=== PATIENT | female | born 1975 | race Caucasian/White ===

== ENCOUNTER 2016-11-25 09:10 | Emergency (ER) | payer OTHER ==
[~2016-11-25] VITALS: Ht 160 cm; Wt 90.7 kg
[2016-11-25] MEDS ORDERED: LEVO150T5 PO (09:31)
[2016-11-25] MEDS ORDERED: ALPR0.254 PO (09:31)
[2016-11-25] MEDS ORDERED: ONDANSETRON PF 4 MG/2 ML VIAL. IV ONE ×2 (10:15→11:15)
[2016-11-25] MEDS ORDERED: IV NORMAL SALINE 1000ML BAG 1,000 ML IV ONE (10:15)
[2016-11-25] MEDS ORDERED: FENTANYL PF 100 MCG/2 ML VIAL. IV ONE (10:15)
[2016-11-25 10:26] LABS: BILIRUBIN,URINE NEGATIVE (NEG); GLUCOSE,URINE NEGATIVE (NEG); NITRITE,URINE NEGATIVE (NEG); PH,URINE 5.5; PROTEIN,URINE NEGATIVE (NEG-TRACE); UROBILINOGEN,URINE 0.2 mg/dL (0.2 mg/dL)
[2016-11-25 10:26] LABS: BASO % 0 % (0-3); EOS % 1 % (0-3); HEMATOCRIT 36.7 % (36.0-47.0); HEMOGLOBIN 12.2 g/dL (12.0-15.5); LYMPH # 2.5 x10^3/uL (1.0-4.8); LYMPH % 30 % (24-48); MEAN CORPUSCULAR HEMOGLOBIN 28 pg (25-35); MEAN CORPUSCULAR HGB CONC 33 g/dL (31-37); MEAN CORPUSCULAR VOLUME 85 fL (79-100); MONO % 8 % (0-9); NEUT % 61 % (31-73); PLATELET COUNT 322 x10^3/uL (140-400); RED BLOOD COUNT 4.32 x10^6/uL (3.50-5.40); RED CELL DISTRIBUTION WIDTH 12.9 % (11.5-14.5); WHITE BLOOD COUNT 8.3 x10^3/uL (4.0-11.0)
--- NOTE | 2016-11-25 10:27 | PHYS DOC ---
Past Medical History Past Medical History: Hypertension, Hypothyroid, Other Additional Past Medical Histor: diaphragmatic hernia Past Surgical History: Other Additional Past Surgical Histo: diaphragmatic hernia repair, right ankle repair with hardware Alcohol Use: None Drug Use: None Adult General Chief Complaint Chief Complaint: GI PROBLEM HPI HPI 41-year-old female who's had significant epigastrium and left upper quadrant pain for the last several months that acutely worsened over the last day. Patient is in the process of being worked up by her primary care doctor and had an outpatient CT scan of her abdomen and pelvis scheduled for tomorrow but states her pain is too significant to make it to that appointment. She states she is nauseated but has not vomited. She states her stools are loose but this is normal for her. Stool was yesterday and was normal for her. She denies any blood in her stool She has history of cholecystectomy as well as history of a diaphragmatic hernia that has been repaired by Dr. Waller in the past. She has not yet had any endoscopy or colonoscopy. She states her last menstrual period was 15 November and she completed it without issue. She denies any vaginal bleeding or discharge. She denies any dysuria or hematuria. She denies any fever. Review of Systems Review of Systems Constitutional: Denies fever or chills [] Eyes: Denies change in visual acuity, redness, or eye pain [] HENT: Denies nasal congestion or sore throat [] Respiratory: Denies cough or shortness of breath [] Cardiovascular: No additional information not addressed in HPI [] GI: Has abdominal pain, has nausea, denies vomiting, denies bloody stools or diarrhea [] : Denies dysuria or hematuria [] Musculoskeletal: Denies back pain or joint pain [] Integument: Denies rash or skin lesions [] Neurologic: Denies headache, focal weakness or sensory changes [] Endocrine: Denies polyuria or polydipsia [] Current Medications Current Medications Current Medications Medications (Trade) Dose Ordered Sig/Kenna Start Time Stop Time Status Last Admin Dose Admin Fentanyl Citrate (Fentanyl 2ml Vial) 50 mcg 1X ONCE 11/25/16 10:15 11/25/16 10:16 DC 11/25/16 10:37 50 MCG Iohexol (Omnipaque 300 Mg/ml) 75 ml 1X ONCE 11/25/16 10:30 11/25/16 10:31 DC 11/25/16 10:59 75 ML Multi-Ingredient Mouthwash/Gargle (Gi Cocktail Single Dose) 15 ml 1X ONCE 11/25/16 11:45 11/25/16 11:46 DC 11/25/16 11:51 15 ML Ondansetron HCl (Zofran) 4 mg 1X ONCE 11/25/16 11:15 11/25/16 11:16 DC 11/25/16 11:19 4 MG Ondansetron HCl 4 mg 4 mg 1X ONCE 11/25/16 10:15 11/25/16 10:16 DC 11/25/16 10:34 4 MG Pantoprazole Sodium (Protonix Vial) 40 mg 1X ONCE 11/25/16 11:45 11/25/16 11:46 DC 11/25/16 11:51 40 MG Sodium Chloride (Iv Sodium Chloride 0.9% 1000ml Bag) 1,000 ml @ 1,000 mls/hr 1X ONCE 11/25/16 10:15 11/25/16 11:14 DC 11/25/16 10:32 1,000 MLS/HR Allergies Allergies Allergies Coded Allergies Type Severity Reaction Last Updated Verified ampicillin Allergy Intermediate hives 11/25/16 Yes Physical Exam Physical Exam Constitutional: Well developed, well nourished, no acute distress, non-toxic appearance. [] HENT: Normocephalic, atraumatic, bilateral external ears normal, oropharynx moist, no oral exudates, nose normal. [] Eyes: PERRLA, EOMI, conjunctiva normal, no discharge. [] Neck: Normal range of motion, no tenderness, supple, no stridor. [] Cardiovascular:Heart rate regular rhythm, no murmur [] Lungs & Thorax: Bilateral breath sounds clear to auscultation [] Abdomen: Bowel sounds normal, soft, moderate LUQ and epigastric tenderness, no masses, no pulsatile masses. [] Skin: Warm, dry, no erythema, no rash. [] Back: No tenderness, no CVA tenderness. [] Extremities: No tenderness, no cyanosis, no clubbing, ROM intact, no edema. [] Neurologic: Alert and oriented X 3, normal motor function, normal sensory function, no focal deficits noted. [] Psychologic: Affect normal, judgement normal, mood normal. [] Current Patient Data Vital Signs Vital Signs Date Time Temp Pulse Resp B/P Pulse Ox O2 Delivery O2 Flow Rate FiO2 11/25/16 12:00 72 20 134/90 100 11/25/16 09:22 98.6 Room Air 98.6 Lab Values Laboratory Tests Test 11/25/16 08:43 11/25/16 09:30 11/25/16 09:55 POC Urine HCG, Qualitative Hcg negative (Negative) Urine Collection Type Unknown Urine Color Yellow Urine Clarity Clear Urine pH 5.5 Urine Specific [place] >=1.030 Urine Protein Negativemg/dL (NEG-TRACE) Urine Glucose (UA) Negativemg/dL (NEG) Urine Ketones (Stick) Tracemg/dL (NEG) Urine Blood Moderate (NEG) Urine Nitrite Negative (NEG) Urine Bilirubin Negative (NEG) Urine Urobilinogen Dipstick 0.2mg/dL (0.2 mg/dL) Urine Leukocyte Esterase Trace (NEG) Urine RBC 0/HPF (0-2) Urine WBC 0/HPF (0-4) Urine Squamous Epithelial Cells Few/LPF Urine Bacteria 0/HPF (0-FEW) White Blood Count 8.3x10^3/uL (4.0-11.0) Red Blood Count 4.32x10^6/uL (3.50-5.40) Hemoglobin 12.2g/dL (12.0-15.5) Hematocrit 36.7% (36.0-47.0) Mean Corpuscular Volume 85fL (79-100) Mean Corpuscular Hemoglobin 28pg (25-35) Mean Corpuscular Hemoglobin Concent 33g/dL (31-37) Red Cell Distribution Width 12.9% (11.5-14.5) Platelet Count 322x10^3/uL (140-400) Neutrophils (%) (Auto) 61% (31-73) Lymphocytes (%) (Auto) 30% (24-48) Monocytes (%) (Auto) 8% (0-9) Eosinophils (%) (Auto) 1% (0-3) Basophils (%) (Auto) 0% (0-3) Neutrophils # (Auto) 5.0x10^3uL (1.8-7.7) Lymphocytes # (Auto) 2.5x10^3/uL (1.0-4.8) Monocytes # (Auto) 0.7x10^3/uL (0.0-1.1) Eosinophils # (Auto) 0.1x10^3/uL (0.0-0.7) Basophils # (Auto) 0.0x10^3/uL (0.0-0.2) Sodium Level 141mmol/L (136-145) Potassium Level 3.7mmol/L (3.5-5.1) Chloride Level 106mmol/L (98-107) Carbon Dioxide Level 25mmol/L (21-32) Anion Gap 10 (6-14) Blood Urea Nitrogen 16mg/dL (7-20) Creatinine 0.8mg/dL (0.6-1.0) Estimated GFR (Cockcroft-Gault) 79.9 BUN/Creatinine Ratio 20 (6-20) Glucose Level 95mg/dL (70-99) Calcium Level 9.0mg/dL (8.5-10.1) Total Bilirubin 0.4mg/dL (0.2-1.0) Aspartate Amino Transferase (AST) 16U/L (15-37) Alanine Aminotransferase (ALT) 20U/L (14-59) Alkaline Phosphatase 56U/L (46-116) Total Protein 7.3g/dL (6.4-8.2) Albumin 3.4g/dL (3.4-5.0) Albumin/Globulin Ratio 0.9 (1.0-1.7) L Lipase 87U/L (73-393) Laboratory Tests 11/25/16 09:55 Laboratory Tests 11/25/16 09:55 EKG EKG [] Radiology/Procedures Radiology/Procedures [] CT scan of the abdomen and pelvis with contrast 11/25/2016 Clinical history: Epigastric pain. Technique: After the intravenous administration of 75 cc of Omnipaque 300, contiguous, 5 mm axial sections were obtained through the abdomen and pelvis. One or more of the following individualized dose reduction techniques were utilized for this study: 1. Automated exposure control. 2. Adjustment of the mA and/or kV according to patient size. 3. Use of iterative reconstruction technique. Findings: Images through the lung bases demonstrate minimal dependent subsegmental atelectasis bilaterally. A 3 mm calcified granuloma is seen involving the right lower lobe. The liver, spleen, pancreas, right adrenal gland and left kidney are within normal limits. A 2.8 cm rounded low-attenuation lesion is seen involving the left adrenal gland consistent most likely with an adrenal adenoma. A 2 to 3 mm nonobstructing calculus is seen involving the superior pole of the right kidney. Surgical clips are seen involving the gallbladder fossa consistent with a cholecystectomy. There is a small sliding hiatal hernia. The abdominal aorta tapers normally. No free fluid or free air is seen within the abdomen. The appendix is well-visualized and is within normal limits. There is no evidence of bowel obstruction. Images through the pelvis demonstrate the urinary bladder distended with urine. No adnexal mass is seen. No free fluid is noted. Impression: No acute abnormality is seen. Course & Med Decision Making Course & Med Decision Making Pertinent Labs and Imaging studies reviewed. (See chart for details) Her laboratory workup was unremarkable. Her serum lipase is not elevated. CT with IV contrast did not reveal any acute abnormality. Patient feels slightly improved after Protonix and Zofran but states the GI cocktail upset her stomach and has made her more nauseated. I counseled her that she is likely in need of endoscopy. She will continue to follow with her primary care doctor for her symptoms with strict instruction to return if it should worsen in any way. I also counseled her to remain well-hydrated and eat a bland diet until she can receive follow-up. The CT of her abdomen and pelvis did demonstrate a sliding hiatal hernia which could be related to her symptoms and I do believe she is still a good candidate for endoscopy. A prescription for protonix and Zofran will be provided. She'll follow up the next day with her primary care doctor for continued pain control as well as endoscopy or any other procedures for her ongoing abdominal pain symptoms. Dragon Disclaimer Dragon Disclaimer This electronic medical record was generated, in whole or in part, using a voice recognition dictation system. Departure Departure Impression: Primary Impression: Abdominal pain Disposition: 01 HOME, SELF-CARE Admitting Physician: Other Condition: STABLE Referrals: JONN REED APRN (PCP) Patient Instructions: Abdominal Pain, [id number] Additional Instructions: Please take your protonix and zofran as prescribed. Follow up closely with your primary doctor in the next several days for your symptoms. Return to the ER if you develop any worsening of your symptoms. Continue to stay well hydrated and eat a bland diet. Scripts Pantoprazole Sodium (Protonix)40 Mg Tablet.dr40 Mg PO DAILY #1 TAB Prov:JOSHUA COWAN DO 11/25/16 Ondansetron Hcl (Zofran)4 Mg Tablet4 Mg PO BID PRN NAUSEA/VOMITING #10 TAB Prov:JOSHUA COWAN DO 11/25/16 JOSHUA COWAN DO Nov 25, 2016 10:27
[2016-11-25] MEDS ORDERED: IOHEXOL 300 MG/ML 75 ML VIAL IV ONE (10:30)
[2016-11-25 10:37] LABS: CREATININE 0.8 mg/dL (0.6-1.0); GFR 79.9; POTASSIUM 3.7 mmol/L (3.5-5.1)
[2016-11-25 10:43] LABS: ALBUMIN 3.4 g/dL (3.4-5.0); ALBUMIN/GLOBULIN RATIO 0.9 (1.0-1.7); TOTAL BILIRUBIN 0.4 mg/dL (0.2-1.0); TOTAL PROTEIN 7.3 g/dL (6.4-8.2)
[2016-11-25 10:46] LABS: BACTERIA,URINE 0 /HPF (0-FEW); RBC,URINE 0 /HPF (0-2); SQUAMOUS EPITHELIAL CELL,UR FEW /LPF; WBC,URINE 0 /HPF (0-4)
--- NOTE | 2016-11-25 11:38 | RAD ---
CT scan of the abdomen and pelvis with contrast 11/25/2016 Clinical history: Epigastric pain. Technique: After the intravenous administration of 75 cc of Omnipaque 300, contiguous, 5 mm axial sections were obtained through the abdomen and pelvis. One or more of the following individualized dose reduction techniques were utilized for this study: 1. Automated exposure control. 2. Adjustment of the mA and/or kV according to patient size. 3. Use of iterative reconstruction technique. Findings: Images through the lung bases demonstrate minimal dependent subsegmental atelectasis bilaterally. A 3 mm calcified granuloma is seen involving the right lower lobe. The liver, spleen, pancreas, right adrenal gland and left kidney are within normal limits. A 2.8 cm rounded low-attenuation lesion is seen involving the left adrenal gland consistent most likely with an adrenal adenoma. A 2 to 3 mm nonobstructing calculus is seen involving the superior pole of the right kidney. Surgical clips are seen involving the gallbladder fossa consistent with a cholecystectomy. There is a small sliding hiatal hernia. The abdominal aorta tapers normally. No free fluid or free air is seen within the abdomen. The appendix is well-visualized and is within normal limits. There is no evidence of bowel obstruction. Images through the pelvis demonstrate the urinary bladder distended with urine. No adnexal mass is seen. No free fluid is noted. Impression: No acute abnormality is seen.
[2016-11-25] MEDS ORDERED: PANTOPRAZOLE IV PUSH 40 MG VIAL. IVP ONE (11:45)
[2016-11-25] MEDS ORDERED: LIDO:MAALOX:DONNATAL 1:1:1 15 ML SINGLE DOSE SWSW ONE (11:45)
[2016-11-25 12:00] VITALS: BP 134/90
[2016-11-25] MEDS ORDERED: PANT40TA3 PO (12:03)
[2016-11-25] MEDS ORDERED: ONDA4TAB7 PO (12:03)
== END 2016-11-25 12:22 | disposition home or self-care (01) ==
LOC: ER 09:10
DX: R10.13 Epigastric pain (principal); R10.12 Left upper quadrant pain; I10 Essential (primary) hypertension; E03.9 Hypothyroidism, unspecified; Z98.890 Other specified postprocedural states; Z88.1 Allergy status to other antibiotic agents
CPT/HCPCS: 36415; 74177; 80053; 81001; 81025; 83690; 85027; 87086; 96361; 96374; 96375; 96376; 99285; C9113; J2405; J3010; J7030; Q9967

== ENCOUNTER 2018-05-13 17:34 | Emergency (ER) | payer OTHER ==
[~2018-05-13] VITALS: Ht 154.9 cm; Wt 74.4 kg
[~2018-05-13 17:34] MED LIST: ALPR0.254 PO; LEVO150T5 PO; ONDA4TAB7 PO; PANT40TA3 PO
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
[2018-05-13] MEDS ORDERED: IBUPROFEN 600 MG TABLET. PO ONE (20:30)
[2018-05-13] MEDS ORDERED: ONDANSETRON ODT 4 MG TAB.RAPDIS. ONE (20:46)
[2018-05-13 21:00] VITALS: BP 144/96
[2018-05-13] MEDS ORDERED: ONDANSETRON ODT 4 MG TAB.RAPDIS. PO ONE (21:00)
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
== END 2018-05-13 21:12 | disposition home or self-care (01) ==
LOC: ER 17:34
DX: S16.1XXA Strain of muscle, fascia and tendon at neck level, initial encounter (principal); S80.02XA Contusion of left knee, initial encounter; S09.8XXA Other specified injuries of head, initial encounter; E03.9 Hypothyroidism, unspecified; F41.9 Anxiety disorder, unspecified; Z88.1 Allergy status to other antibiotic agents; Z88.6 Allergy status to analgesic agent; Z88.5 Allergy status to narcotic agent; V43.93XA Unspecified car occupant injured in collision with pick-up truck in traffic accident, initial encounter; Y93.89 Activity, other specified; Y92.410 Unspecified street and highway as the place of occurrence of the external cause; Y99.8 Other external cause status
CPT/HCPCS: 70450; 71045; 72125; 73562; 99284; Q0162

== ENCOUNTER 2018-06-06 11:48 | Emergency (ER) | payer SELFPAY ==
[~2018-06-06] VITALS: Ht 154.9 cm; Wt 74.4 kg
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
[2018-06-06] MEDS ORDERED: ONDANSETRON PF 4 MG/2 ML VIAL. IV ONE (13:00)
[2018-06-06] MEDS ORDERED: traMADol 50 MG TABLET PO ONE (13:00)
[2018-06-06 13:10] LABS: BASO # 0.1 x10^3/uL (0.0-0.2); BASO % 1 % (0-3); EOS % 1 % (0-3); HEMATOCRIT 33.1 % (36.0-47.0); LYMPH # 1.6 x10^3/uL (1.0-4.8); LYMPH % 23 % (24-48); MEAN CORPUSCULAR HEMOGLOBIN 27 pg (25-35); MEAN CORPUSCULAR HGB CONC 33 g/dL (31-37); MEAN CORPUSCULAR VOLUME 82 fL (79-100); MONO # 0.5 x10^3/uL (0.0-1.1); MONO % 7 % (0-9); NEUT # 4.7 x10^3uL (1.8-7.7); NEUT % 68 % (31-73); PLATELET COUNT 328 x10^3/uL (140-400); RED BLOOD COUNT 4.06 x10^6/uL (3.50-5.40); RED CELL DISTRIBUTION WIDTH 16.1 % (11.5-14.5); WHITE BLOOD COUNT 6.9 x10^3/uL (4.0-11.0)
[2018-06-06 13:12] LABS: CALCIUM 9.2 mg/dL (8.5-10.1); CREATININE 0.8 mg/dL (0.6-1.0); POTASSIUM 4.1 mmol/L (3.5-5.1)
[2018-06-06 13:18] LABS: ALBUMIN 3.5 g/dL (3.4-5.0); TOTAL BILIRUBIN 0.3 mg/dL (0.2-1.0); TOTAL PROTEIN 7.1 g/dL (6.4-8.2)
[2018-06-06 13:21] LABS: BILIRUBIN,URINE NEGATIVE (NEG); CLARITY,URINE CLEAR; COLOR,URINE YELLOW; NITRITE,URINE NEGATIVE (NEG); PH,URINE 7.5; PROTEIN,URINE NEGATIVE (NEG-TRACE); UROBILINOGEN,URINE 0.2 mg/dL (0.2 mg/dL)
[2018-06-06] MEDS ORDERED: fentaNYL PF VIAL 100 MCG/2 ML VIAL IV ONE (13:30)
[2018-06-06 13:32] LABS: SQUAMOUS EPITHELIAL CELL,UR MOD /LPF
[2018-06-06 13:33] LABS: BACTERIA,URINE FEW /HPF (0-FEW); RBC,URINE RARE /HPF (0-2); WBC,URINE 0 /HPF (0-4)
[2018-06-06] MEDS ORDERED: IOHEXOL 240 MG/ML 50ML VIAL. PO ONE (13:45)
[2018-06-06] MEDS ORDERED: CONTRAST GIVEN. MC PRN (13:45)
[2018-06-06] MEDS ORDERED: IOHEXOL 300 MG/ML 100ML VIAL. IV ONE (13:45)
[2018-06-06 14:20] VITALS: BP 137/78
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
[2018-06-06] MEDS ORDERED: TRAM50TA PO (14:38)
[2018-06-06] MEDS ORDERED: ONDA4TAB7 PO (14:38)
== END 2018-06-06 14:52 | disposition home or self-care (01) ==
LOC: ER 11:48
DX: R10.13 Epigastric pain (principal); R19.7 Diarrhea, unspecified; F41.9 Anxiety disorder, unspecified; E03.9 Hypothyroidism, unspecified; F17.200 Nicotine dependence, unspecified, uncomplicated; Z90.49 Acquired absence of other specified parts of digestive tract; Z88.1 Allergy status to other antibiotic agents; Z88.6 Allergy status to analgesic agent; Z88.5 Allergy status to narcotic agent
CPT/HCPCS: 36415; 74177; 80053; 81001; 81025; 83690; 85025; 96374; 96375; 99285; J2405; J3010; Q9966; Q9967

== ENCOUNTER 2018-10-07 09:26 | Emergency (ER) | payer OTHER ==
[~2018-10-07] VITALS: Ht 154.9 cm; Wt 74.4 kg
[~2018-10-07 09:26] MED LIST changes: +TRAM50TA PO
[2018-10-07 10:09] VITALS: BP 140/86
--- NOTE | 2018-10-07 10:42 | PHYS DOC ---
Past Medical History Past Medical History: Anxiety, Hypothyroid Additional Past Medical Histor: diaphragmatic hernia, alopecia Past Surgical History: Other Additional Past Surgical Histo: HERNIA, ANKLE Alcohol Use: None Drug Use: None Adult General Chief Complaint Chief Complaint: LOWER EXT PAIN HPI HPI Patient is a 43 year old male with history of anxiety, hypothyroidism, who presents to the ED today complaining of 10/10 left foot and ankle pain that began 3 days ago. Patient denies any known injury. States the pain is worse on weight-bearing and radiates all the way to the left leg worse on the left arc. Patient states the pain is worse on weight bearing. Review of Systems Review of Systems Constitutional: Denies fever or chills [] Musculoskeletal: Reports left foot and left ankle pain Integument: Denies rash or skin lesions [] Neurologic: Denies headache, focal weakness or sensory changes [] All other systems were reviewed and found to be within normal limits, except as documented in this note. Current Medications Current Medications Current Medications Medications (Trade) Dose Ordered Sig/Kenna Start Time Stop Time Status Last Admin Dose Admin Naproxen (Naprosyn) 500 mg 1X STAT 10/07/18 10:49 10/07/18 10:58 DC 10/07/18 11:01 500 MG Allergies Allergies Allergies Coded Allergies Type Severity Reaction Last Updated Verified ampicillin Allergy Intermediate hives 11/25/16 Yes acetaminophen Allergy Unknown 05/13/18 Yes oxycodone Allergy Unknown 05/13/18 Yes Physical Exam Physical Exam Constitutional: Well developed, well nourished, no acute distress, non-toxic appearance. [] Skin: Warm, dry, no erythema, no rash. [] Back: No tenderness, no CVA tenderness. [] Extremities: Left foot and left ankle with no obvious deformity. Full range of motion to the left foot and left ankle. +2 left pedal pulse. Cap refill less than 2 seconds the left toes. Negative Homans sign to the left lower extremity. Neurologic: Alert and oriented X 3, normal motor function, normal sensory function, no focal deficits noted. [] Psychologic: Depressed Current Patient Data Vital Signs Vital Signs Date Time Temp Pulse Resp B/P (MAP) Pulse Ox O2 Delivery O2 Flow Rate FiO2 10/07/18 10:09 98.4 78 16 140/86 (104) 97 Room Air 98.4 EKG EKG [] Radiology/Procedures Radiology/Procedures [] Course & Med Decision Making Course & Med Decision Making Pertinent Labs and Imaging studies reviewed. (See chart for details) This is a 43-year-old female patient presenting to the ED today with left foot and left ankle pain for 3 days, no known injury. X-rays of the left foot and left ankle and negative for any acute findings. Patient discharged with diclofenac. Ice and elevation encouraged. Follow-up with orthopedic doctor in the next 1 week. RN informs me patient threw her discharge paperwork across the room stating she wanted pain medicine and muscle relaxers for home use and walked away. Dragon Disclaimer Dragon Disclaimer This electronic medical record was generated, in whole or in part, using a voice recognition dictation system. Departure Departure Impression: Primary Impression: Acute left ankle pain Additional Impression: Left foot pain Disposition: HOME, SELF-CARE Condition: STABLE Referrals: WALKER SERRATO MD (PCP) ANNI COY MD follow up in one week Patient Instructions: Ankle Pain Additional Instructions: You were evaluated in the emergency room for left ankle and left foot pain. Your x-rays are negative for any acute findings. Try to ice and elevate the extremity. Follow-up with orthopedic doctor provided in one week. Take the prescribed pain medications as needed for pain. Scripts Naproxen (NAPROXEN) 500 Mg Tablet 1 TAB PO BID, #20 TAB 0 Refills Prov: SLIME TOWNSEND APRN 10/07/18 Problem Qualifiers SLIME TOWNSEND APRN Oct 07, 2018 10:42
[2018-10-07] MEDS ORDERED: NAPROXEN 500 MG TABLET PO STA (10:49)
--- NOTE | 2018-10-07 11:04 | RAD ---
Examination: 3 views of the left foot and left ankle HISTORY: History of pain medial, lateral foot COMPARISON: None available FINDINGS: The alignment of the ankle joint grossly appears unremarkable. There is no acute fracture or dislocation identified. The alignment of the tarsal bones, tarsometatarsal joints, tarsophalangeal, interphalangeal joints grossly appears unremarkable. IMPRESSION: No acute osseous findings Electronically signed by: Trenton Hood MD (10/07/2018 11:01 AM) [place] [id number]
[2018-10-07] MEDS ORDERED: NAPR-514 PO (11:45)
== END 2018-10-07 11:52 | disposition home or self-care (01) ==
LOC: ER 09:26
DX: M25.572 Pain in left ankle and joints of left foot (principal); M79.672 Pain in left foot; E03.9 Hypothyroidism, unspecified; Z88.1 Allergy status to other antibiotic agents; Z88.6 Allergy status to analgesic agent; Z88.5 Allergy status to narcotic agent
CPT/HCPCS: 73610; 73630; 99283

== ENCOUNTER 2019-10-25 14:12 | Emergency (ER) | payer SELFPAY ==
[~2019-10-25] VITALS: Ht 160 cm; Wt 77.2 kg
[~2019-10-25 14:12] MED LIST changes: +NAPR-514 PO; -PANT40TA3 PO; +PANT40TA77 PO
[2019-10-25 16:16] VITALS: BP 142/94
--- NOTE | 2019-10-25 16:25 | PHYS DOC ---
Past Medical History Past Medical History: Anxiety, Hypothyroid Additional Past Medical Histor: diaphragmatic hernia, alopecia Past Surgical History: Other Additional Past Surgical Histo: HERNIA, ANKLE Smoking Status: Current Every Day Smoker Alcohol Use: None Drug Use: None Adult General Chief Complaint Chief Complaint: FLU SYMPTOM HPI HPI Patient is a 44 year old female who presents the ED today complaining of subjective fevers, body aches, chills, headaches, sore throat, symptoms for 3 days. She would like to be tested for influenza. Review of Systems Review of Systems Constitutional: Reports body aches, fevers, chills. Eyes: Denies change in visual acuity, redness, or eye pain [] HENT: Reports sore throat. Denies nasal congestion Respiratory: Reports cough, denies shortness of breath [] Cardiovascular: No additional information not addressed in HPI [] GI: Denies abdominal pain, nausea, vomiting, bloody stools or diarrhea [] : Denies dysuria or hematuria [] Musculoskeletal: Denies back pain or joint pain [] Integument: Denies rash or skin lesions [] Neurologic: Reports headache, denies focal weakness or sensory changes [] All other systems were reviewed and found to be within normal limits, except as documented in this note. Allergies Allergies Allergies Coded Allergies Type Severity Reaction Last Updated Verified ampicillin Allergy Intermediate hives 11/25/16 Yes acetaminophen Allergy Unknown 05/13/18 Yes oxycodone Allergy Unknown 05/13/18 Yes Physical Exam Physical Exam Constitutional: Well developed, well nourished, no acute distress, non-toxic appearance. [] HENT: Normocephalic, atraumatic, bilateral external ears normal, oropharynx moist, no oral exudates, nose normal. [] Eyes: PERRLA, EOMI, conjunctiva normal, no discharge. [] Neck: Normal range of motion, no tenderness, supple, no stridor. [] Cardiovascular:Heart rate regular rhythm, no murmur [] Lungs & Thorax: Bilateral breath sounds clear to auscultation [] Abdomen: Bowel sounds normal, soft, no tenderness, no masses, no pulsatile masses. [] Skin: Warm, dry, no erythema, no rash. [] Back: No tenderness, no CVA tenderness. [] Extremities: No tenderness, no cyanosis, no clubbing, ROM intact, no edema. [] Neurologic: Alert and oriented X 3, normal motor function, normal sensory function, no focal deficits noted. [] Psychologic: Affect normal, judgement normal, mood normal. [] Current Patient Data Vital Signs Vital Signs Date Time Temp Pulse Resp B/P (MAP) Pulse Ox O2 Delivery O2 Flow Rate FiO2 10/25/19 16:16 98.1 65 16 142/94 (110) 98 Room Air 98.1 Lab Values Laboratory Tests Test 10/25/19 16:17 Influenza Type A Antigen Negative (NEGATIVE) Influenza Type B Antigen Negative (NEGATIVE) EKG EKG [] Radiology/Procedures Radiology/Procedures [] Course & Med Decision Making Course & Med Decision Making Pertinent Labs and Imaging studies reviewed. (See chart for details) This is a 44-year-old female patient presenting to the ED today with flulike symptoms including body aches, subjective fevers, sore throat and cough, symptoms for 3 days. Requesting influenza testing. Negative influenza A/B. Discharge to home. Supportive care measures recommended. Dragon Disclaimer Dragon Disclaimer This electronic medical record was generated, in whole or in part, using a voice recognition dictation system. Departure Departure Impression: Primary Impression: Fever Additional Impression: Cough Disposition: HOME, SELF-CARE Condition: STABLE Referrals: NO PCP (PCP) follow up with your doctor in 1-2 weeks Patient Instructions: Cough, Adult, [id number], Fever, Adult, [id number] Additional Instructions: Your influenza test is negative. We recommend you take [id number] remedies as needed for cold/flu symptoms. You can take Tylenol/Motrin for pain or fever. 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
[2019-10-25 16:55] LABS: INFLUENZA A PATIENT NEGATIVE (NEGATIVE); INFLUENZA B PATIENT NEGATIVE (NEGATIVE)
== END 2019-10-25 17:13 | disposition home or self-care (01) ==
LOC: ER 14:12
DX: R50.9 Fever, unspecified (principal); R05 Cough; R51 Headache; M79.10 Myalgia, unspecified site; J02.9 Acute pharyngitis, unspecified; E03.9 Hypothyroidism, unspecified; F17.200 Nicotine dependence, unspecified, uncomplicated; Z88.1 Allergy status to other antibiotic agents; Z88.5 Allergy status to narcotic agent; Z88.6 Allergy status to analgesic agent
CPT/HCPCS: 87804; 99283